=== PATIENT | male | born 1945 | race Caucasian/White ===

== ENCOUNTER 2017-03-14 21:11 | Emergency (ER) | payer OTHER ==
[~2017-03-14] VITALS: Ht 170.2 cm; Wt 77.1 kg
--- NOTE | 2017-03-14 21:35 | Emergency Room Report ---
History of Present Illness Time Seen by [id number] Presenting Problem in Triage Pt arrived:Wheelchair Presenting Problem:PT C/O MIDLINE ABD PAIN, NAUSEA AND DIARRHEA SINCE THIS MORNING. PT STATES HE ATE AT A PLACE THAT HE BELIEVES COULD BE CAUSING HIS SYMPTOMS. Onset of symptoms date/time:/ or onset unknown for:MEDICAL HX UNKNOWN Treatment Prior to Arrival: TYLENOL 3 THIS AM. DEVELOPMENT LEAD Provided by:LAYPERSON Sepsis Risk Assessment: Temp: 100.1 B/P: 92/54 MAP: 66 Pulse: 81 Resp: 20 Recent fever? N Clinical Suspician of Infection? N Mental Status: 1 - Regular (Normal Baseline) Sepsis Risk:Low Sepsis Risk Have you (or family members/close friends) recently traveled outside the [place]? N If Yes, where/when: Have you had exposure to infectious disease within the past month? N TB? Other? Specify: Source patient, RN notes reviewed, family, old records Exam Limitations no limitations Comment pt with hx of non-etoh liver disease with hx of hep c - he presents with dec po intake with nausea and nonbldy diarrhea today- no known contact- no travel or raw food- Cardiac Chest Pain Chest pain indicative of cardiac No Timing/Duration this evening Severity moderate ALLERGIES Coded Allergies: No Known Allergies (03/14/17) Home Medications Reported Medications Furosemide (Lasix 40MG) 40 MG PO DAILY Eplerenone 50 MG PO DAILY APAP 300MG W/CODEINE 30MG (Acetaminophen-Cod #3 Tablet) 1 TAB PO Q4HP PRN PAIN ERGOCALCIFEROL (VITAMIN D2) (Vitamin D2) 5,000 IUNITS PO DAILY Temazepam (Restoril 15MG) 15 MG PO QHS History Medical History General CAD? No Angina: No [place]: No Hypertension? No Hyperlipidemia? No CHF? No DVT? No PE? No COPD? No Asthma? No Anemia? Yes GERD? Yes Gastric ulcers? Yes GI Bleed? Yes Hernia? Yes Thyroid Problems? No Hypothyroidism? No CVA? No Seizures? No Diabetes? No Renal Insuffiency? No End Stage Renal Disease? No UTI? No Stones? Yes BPH? No GB Disease: No Nephritic Syndrome? No Asplenia? No Hepatitis? Yes Sickle Cell Disease? No Arthritis? No Migraines? No Cataracts? No Glaucoma? No MRSA? Yes HIV? No TB? No Anxiety? No Depression? No Cancer? No More? Yes Additional hx: HEP C, ESOPHEGEAL VARICIES. Immunization Hx DT/Tetanus 1-4 Years Ago Surgical Hx Previous Surgery?Y ESOPHEGEAL VARICIES POLYPS Hernia Repair LITHOTRIPSY Social History Smoking Hx Smoker: Current Some Day Smoker Tobacco: Yes Type Cigarettes Packs/day < 1 Pack Are you/the child exposed to second-hand smoke: Yes Alcohol Alcohol: No Drugs none Review of Systems All Other Systems Reviewed and Negative Constitutional see HPI, fever, weakness Eyes denies drainage ENT denies: ear discharge, epistaxis, throat pain. Respiratory denies cough, denies shortness of breath, denies wheezing Cardiovascular denies chest pain, denies palpitations, denies syncope Gastrointestinal see HPI, abdominal pain, diarrhea, nausea, denies vomiting Genitourinary denies: dysuria, frequency, hesitancy. Musculoskeletal denies back pain, denies joint pain, denies neck pain Skin denies rash Psychiatric/Neurological denies headache, denies seizure Physical Exam Vital Signs Vital Signs Date Time Temp Pulse Resp B/P Pulse O2 O2 Flow FiO2 Ox Delivery Rate 03/149 100.7 80 20 112/70 97 03/14 2212 100.3 81 20 102/63 95 03/14 2114 100.1 81 20 92/54 95 - WBC >12,000 or <4,000 or 10% bands? 2 or more SIRS Criteria Met? B/P:112/70 MAP:66 Creatinine >2.0? UA output<0.5ml/kg/hr for 2 hrs? Platelet count >100,000? Lactate >2.0mmol/1? INR >1.2 or PTT > than 60 sec? Evidence of Organ Dysfunction? Provider documented clinical suspician of infection? N Sepsis Criteria Count: 1 Sepsis Risk: Low Sepsis Risk General Appearance no apparent distress Eye Exam - bilateral eye PERRL, bilateral eye EOMI, bilateral eye icterus Ear, Nose, Throat normal ENT inspection Neck supple Respiratory Status No: respiratory distress. Lung Sounds bilateral: decreased breath sounds. Cardiovascular regular rate/rhythm, no rub, systolic murmur Peripheral Pulses Pulses normal Yes Gastrointestinal soft, no organomegaly, no pulsatile mass, no guarding, no rebound, tenderness Back no CVA tenderness Extremities normal inspection Strength 4 Upper Ext (L), 4 Upper Ext (R), 4 Lower Ext (L), 4 Lower Ext (R) Neurologic alert, chief nurse II-XII nml as tested, no motor/sensory deficits Reflexes Reflexes normal No Mental status normal mood/affect Skin intact Medical Decision Making LABS/Meds/Orders Pt receiving controlled substance in ED? No Results/Orders Laboratory Tests 03/14/172224: Urine Color YELLOW, Urine Appearance CLEAR, Urine pH 6.0, Ur Specific [place] 1.020, Urine Protein TRACE H, Urine Ketones 1+ H, Urine Blood 1+ H, Urine Nitrate POSITIVE H, Urine Bilirubin NEGATIVE, Urine Urobilinogen 0.2, Ur Leukocyte Esterase NEGATIVE, Urine RBC OCC, Urine WBC OCC, Ur Squamous Epith Cells OCC, Urine Bacteria TRACE, Urine Mucus 2+, Urine Glucose NEGATIVE 03/14/172131: Lactic Acid 1.8 03/14/172131: Sodium 140, Potassium 4.0, Chloride 111 H, Carbon Dioxide 21 L, BUN 29 H, Creatinine 1.5 H, Estimated Creat Clear 51, Estimated GFR (MDRD) 46, Glucose 88 , Calcium 8.1 L, Total Bilirubin 3.8 H, AST 67 H, ALT 48, Alkaline Phosphatase 187 H, Total Protein 6.9, Albumin 2.6 L, Globulin 4.3 H, Albumin/ Globulin Ratio 0.6 L, Amylase 71, Lipase 244, PT Pending, INR Pending, APTT Pending, WBC 10.4, RBC 3.52 L, Hgb 12.6 L, Hct 38.7 L, MCV 109.8 H, RDW 15.0 , Plt Count 61 L, MPV 9.4, Gran % 88.4 H, Gran # 9.2 H, Total Counted Pending , Lymphocytes % 7.8 L, Monocytes % 3.4, Eosinophils % 0.2, Basophils % 0.2, Neutrophils Pending, Lymphocytes (Manual) Pending, Lymphocytes # 0.8, Monocytes # 0.4, Eosinophils # 0.0, Basophils # 0.0, Platelet Estimate Pending, PUBS MCHC 32.5, MCH 35.7 H Current Medication Orders Sig/Elvira Start time Last Medication Dose Route Stop Time Status Admin Acetaminophen 500 MG ONCE ONE 03/14 2230 DCr 03/14 PO 03/14 Acetaminophen 0 .STK-MED ONE 03/14 2218 DCr PO Sodium Chloride 1,000 ML .Q4H 03/14 2145 AC 03/14 IV 03/15 0144 2 Sodium Chloride 10 ML PRN PRN 03/14 2145 AC IV 03/15 2135 Sodium Chloride 1,000 ML .STK-MED ONE 03/14 2135 DC IV Sodium Chloride 10 ML PRN PRN 03/14 2130 AC IV 03/15 2129 Orders Procedure Date/time Status DIET-NOTHING BY MOUTH 03/15 B Active PARTIAL THROMBOPLASTIN TIME 03/14 2310 Active PROTHROMBIN TIME 03/14 2310 Active CULTURE, URINE 03/14 2225 Active CULTURE, BLOOD 03/[address] ABD & PELVIS W/O CONTRAST 03/14 2132 Active URINALYSIS/COMPLETE 03/14 2132 Complete DIFFERENTIAL-WBC 03/[address] ABD/PELVIS REQ 03/14 2130 Complete IV SALINE LOCK 03/14 2130 Active CULTURE, BLOOD 03/14 2130 Active LIPASE 03/14 2130 Complete LACTIC ACID 03/14 2130 Complete DIARRHEA PANEL, PCR 03/14 2130 Active CBC WITH AUTO DIFF 03/14 2130 Active CHEM 12 PROFILE 03/14 2130 Complete AMYLASE 03/14 2130 Complete XRAY/CT/US XRAY/CT/US CT abdomen, pelvis CT interpretation by discussed w/radiologist Time results known: 2321 CT Results abnormal (see report) Departure Departure Time of Disposition 2314 Disposition DC/XFER from ER to [facility] Hosp Clinical Impression Primary Impression: Colitis Secondary Impressions: Cholelithiasis Qualifiers: Cholelithiasis location: gallbladder Cholecystitis presence: without cholecystitis Biliary obstruction: without biliary obstruction Qualified Code: K80.20 - Calculus of gallbladder without cholecystitis without obstruction Icterus Thrombocytopenia Condition STABLE Additional Instructions discussed with az dr gambino ED Critical Care Critical Care Yes Time spent 30-74 min Vital system(s) involved: Metabolic Failure I was present at bedside for Coordinating pt's care, Interpreting EKGs/Strips , Reviewing lab results, Discussing pt condition, For re-examinations at 2322
[2017-03-14] MEDS ORDERED: LASIX 40MG. TAB40 MG PO (21:37)
[2017-03-14] MEDS ORDERED: EPLERENONE50 MG PO (21:38)
[2017-03-14] MEDS ORDERED: TYLENOL W/CODEI1 TA2 PO (21:38)
[2017-03-14] MEDS ORDERED: VITAMIN D22000 IU PO (21:39)
[2017-03-14] MEDS ORDERED: RESTORIL 15MG C15 MG PO (21:40)
[2017-03-14 21:49] LABS: HEMOGLOBIN 12.6 g/dL (14.1-18.0); LYMPH # 0.8 K/mm3 (0.7-4.5); LYMPH % 7.8 % (10-50)
[2017-03-14 22:30] LABS: URINE BLOOD 1+ (NEG)
[2017-03-14 22:31] LABS: URINE BILIRUBIN - DIPSTICK NEGATIVE (NEG)
[2017-03-14 22:46] LABS: URINE SQUAMOUS CELLS OCC #/hpf (OCC)
[2017-03-15 01:18] VITALS: BP 88/48
[2017-03-15 01:52] LABS: NEUTROPHILS 89 % (42-76)
--- NOTE | 2017-03-15 09:57 | RADIOLOGY REPORT PS360 ---
CT ABD PELVIS W/O CONTRAST CLINICAL INDICATION: Midline abdominal pain and fever MID-LINE ABD PAIN ORDERING PHYSICIAN: Juanito Keller MD PATIENT AGE: 71 years COMPARISON: None TECHNIQUE: Axial images obtained with sagittal and coronal reformats. PROCEDURE: Oral Contrast: None IV Contrast: None . FINDINGS: There is a small right pleural effusion. Atelectatic or fibrotic changes are present in the right lung base. There is increased density about the lower esophagus some of which may be due to varices. Esophageal mass is not excluded. The liver has a shrunken cirrhotic appearance. Gallbladder is distended with gallstones with pericholecystic fluid and or wall thickening. The spleen is enlarged at 14 cm. There is diffuse coarse calcification of the pancreas greater in the tail the pancreas consistent with chronic pancreatitis. There are diffuse paraesophageal and epigastric and mesenteric varices. Splenic vein is enlarged as is the superior mesenteric vein and proximal aspect of the portal vein consistent with portal hypertension. Unremarkable adrenal glands. No hydronephrosis or obstructing ureteral calculus. There are bilateral renal nodular densities which are nonspecific and may be due to cyst and could be confirmed with ultrasound. There is diffuse colonic wall thickening with diffuse haziness of the mesenteric fat in a small amount fluid in the paracolic gutters and pelvis. There are scattered colonic diverticula. No intestinal obstruction or free air. There is edema of the descending and transverse duodenum as well as the jejunum proximally. The appendix is obscured. Soft tissue density is present at the umbilical region may be due to a dilated collateral vein. No acute bony anomalies. IMPRESSION: 1. Cirrhosis with portal hypertension with splenomegaly and diffuse abdominal and paraesophageal varices. Nonspecific increased density about the lower aspect of the esophagus 2. Small right effusion. Small amount of ascites. 3. Distended gallbladder with cholelithiasis and gallbladder wall thickening and/or pericholecystic fluid. Gallbladder ultrasound may be of further value. 4. Diffuse colonic wall thickening as well as thickening of the proximal small bowel consistent with enterocolitis 5. Chronic pancreatitis 6. Bilateral renal nodules
--- OUTSIDE RECORDS SUMMARY | 2017-03-19 03:51 | External Medical Summary Rpt | CCD ---
Author Author [employer] Organization [employer] Address Unknown Phone Unavailable Purpose Continuity of Care Document - through 2016
--- OUTSIDE RECORDS SUMMARY | 2017-03-19 03:51 | External Medical Summary Rpt | CCD ---
Demographics Preferred Language Bangladeshi Marital Status Unknown Anabaptism Affiliation Unknown Race Unknown Ethnic Group Unknown Author Author , [employer] Address Unknown Phone Immunization No patient found.
--- OUTSIDE RECORDS SUMMARY | 2017-03-19 03:51 | External Medical Summary Rpt | CCD ---
Demographics Preferred Language Comoran Marital Status Unknown Mu-Ism Affiliation Unknown Race Unknown Ethnic Group Unknown Author Author , [employer] Address Unknown Phone Immunization No patient found.
--- OUTSIDE RECORDS SUMMARY | 2017-03-19 03:51 | External Medical Summary Rpt | CCD ---
Author Author , [employer] Address Unknown Phone [email or web address] Purpose Continuity of Care Document - through 2016
--- OUTSIDE RECORDS SUMMARY | 2017-03-19 03:51 | External Medical Summary Rpt | CCD ---
Author Author , [employer] Address Unknown Phone [email or web address] Purpose Continuity of Care Document - through 2016
== END 2017-03-15 01:43 | disposition short-term general hospital (02) ==
LOC: ER 21:11
PROVIDERS: Emergency Medicine
DX: K52.9 Noninfective gastroenteritis and colitis, unspecified (principal); K80.20 Calculus of gallbladder without cholecystitis without obstruction; D69.6 Thrombocytopenia, unspecified